=== PATIENT | male | born 1940 | race Caucasian/White ===

== ENCOUNTER → 2018-02-13 12:56 | Outpatient (CLI) | payer OTHER, SELFPAY ==
--- NOTE | 2018-02-13 | DI.CT.S_ITS ---
PROCEDURE: CT CHEST W CON INDICATIONS: 77-year-old male with 1 cm lateral right mid lung nodule on prior chest CT. TECHNIQUE: After the administration of intravenous contrast, 5 mm thick sections acquired from the pulmonary apices to the posterior costophrenic angles. 7 mm thick coronal and sagittal MIP reformats were acquired. For radiation dose reduction, the following was used: automated exposure control, adjustment of mA and/or kV according to patient size. COMPARISON: [facility], CT, PE STUDY (CTA CHEST), 02/28/2017, 17:11. [facility], CT, PE STUDY (CTA CHEST), 05/24/2016, 17:03. [facility], CT, CT CHEST WO CON, 04/18/2017, 11:28. FINDINGS: Image quality: Excellent. Lungs and pleura: No acute air space opacities. There is mild biapical paraseptal emphysema. Previously noted peripheral right midlung subpleural 1 cm opacity is no longer present. No pleural effusions or pneumothorax. Central and peripheral airways are patent and normal in caliber. Mediastinum: Heart size is normal, with widespread coronary artery atherosclerosis. No pericardial effusion. No mediastinal or hilar adenopathy by size criteria. Thoracic aorta and central pulmonary arteries are normal in size. Esophagus is normal in caliber. No hiatal hernia. Bones and chest wall: No suspicious bony lesions. Nonacute right second through sixth rib fractures are again noted. No vertebral body compression fractures. Patient is status post lower cervical spine anterior fixation. No axillary or supraclavicular adenopathy by size criteria. Thyroid gland is normal in size. There is asymmetric right supraspinatus and infraspinatus muscle atrophy. Abdomen: Bilateral renal cortical cysts are incompletely visualized, measuring up to 3.7 cm on the right. IMPRESSION: 1. Previously noted peripheral right midlung subpleural 1 cm nodular opacity is no longer present, consistent with resolved infectious or inflammatory focus. No further followup imaging is needed. 2. Mild biapical paraseptal emphysema. 3. Multiple nonacute right second through sixth rib fractures as before. 4. Right supraspinatus and infraspinatus muscle fatty atrophy, consistent with chronic full-thickness rotator cuff tendon tears. Dictated by: Boris Iqbal M.D. on 02/13/2018 at 14:30 Approved by: Boris Iqbal M.D. on 02/13/2018 at 14:42
[2018-02-13 13:34] LABS: Estimated Glomerular Filt Rate > 60.0 mL/min (>60)
== END ==
PROVIDERS: PCP Internal Medicine; Visit Provider Internal Medicine
DX: R91.1 Solitary pulmonary nodule (principal)
CPT/HCPCS: 36415; 71260; 82565; Q9967

== ENCOUNTER → 2018-02-20 13:51 | Outpatient (CLI) | payer OTHER, SELFPAY ==
--- NOTE | 2018-02-21 18:12 | DI.NM.S_ITS ---
DATE OF SERVICE: 02/20/2018 ORDERING PHYSICIAN: Viral Yanes MD PROCEDURE: Nuclear cardiac stress study. INDICATIONS: Mr. Garcia is a 77-year-old gentleman with a history of known coronary artery disease. Nuclear cardiac stress study is performed to evaluate for recurrent ischemia. STRESS TEST: This patient was given a standard pharmacologic stress study with Lexiscan injection. Patient had no symptoms of angina or diagnostic EKG changes of ischemia following pharmacologic stress. He received 24.8 mCi of technetium- 99 Myoview for the stress portion of the examination, and returned 1 day later for the resting portion of the examination receiving an additional 20.4 mCi. FINDINGS: Raw Data: Raw data images demonstrate overall good image quality. There are no significant sources of artifact or interference noted. Quantitative Gated SPECT Imaging: Gated images show a heart size upper limits of normal at 128 cc. The estimated ejection fraction is 62%, which I think is probably overestimated. There is significant wall motion abnormality involving the basal and midportion of the inferior wall and lateral wall. Quantitative Perfusion SPECT Imaging: Stress myocardial perfusion imaging shows a large area of dense hypoperfusion involving the inferior wall extending out to the apex and involving also the posterior and lateral wall. Resting images show a similar myocardial perfusion deficit that may be slightly improved in the basal and midportion of the lateral wall. No other per convincing perfusion abnormalities are identified. IMPRESSION: Abnormal nuclear cardiac stress study suggesting a fairly large scar involving the territory of the left circumflex coronary artery. No clear- cut ischemia identified in the Left anterior descending (LAD) distribution or the inferior septum. Clinical correlation suggested. Kevin Garcia - CELSA/lashawn/ab doc#: [id number]/job#: [id number] dd: 02/21/2018 16:29:00 dt: 02/21/2018 17:57:00 DICTATING MD/COPIES TO: Regis Queen MD COPIES MNE: RELL
== END ==
PROVIDERS: PCP Internal Medicine; Visit Provider Internal Medicine Interventional Cardiology
DX: I25.10 Atherosclerotic heart disease of native coronary artery without angina pectoris (principal)
CPT/HCPCS: 78452; 93016; 93017; 93018; A9502; J2785

== ENCOUNTER → 2018-02-21 07:40 | Outpatient (CLI) | payer OTHER, SELFPAY ==
--- NOTE | 2018-02-21 | DI.US.S_ITS ---
PROCEDURE: US RETRO PERITONEAL LIMITED INDICATIONS: PERIPHERAL VASCULAR DISEASE TECHNIQUE: Real time scanning was performed of the aorta and iliac arteries, with image documentation. COMPARISON: None. FINDINGS: Aorta: Proximal aortic diameter measures 2.1 cm. Mid-aorta measures 1.7 cm. Distal aortic diameter is 1.4 cm. Iliac arteries: Right common iliac artery measures 0.8 cm. Left common iliac artery measures 0.9 cm. IMPRESSION: There is prominent calcific and soft plaque over the visualized aorta and iliac vessels area no aneurysm found. Dictated by: Jhoan Vee M.D. on 02/21/2018 at 10:24 Approved by: Johan Vee M.D. on 02/21/2018 at 10:25
--- NOTE | 2018-02-21 | DI.US.S_ITS ---
PROCEDURE: US ARTERIAL DUPLEX LE BI INDICATIONS: Peripheral vascular disease TECHNIQUE: Color and pulse Doppler interrogation was performed of both lower extremity arterial systems, with image documentation. COMPARISON: None. FINDINGS: Right lower extremity: Common femoral artery: No flow seen Deep femoral artery: No flow seen Proximal superficial femoral artery: Monophasic flow, 3 51 cm/s Mid superficial femoral artery: Monophasic flow, 26 cm/s Distal superficial femoral artery: Monophasic flow, 44 cm/s Popliteal artery: Monophasic flow, 79 cm/s Posterior tibial artery: Monophasic flow, 22 cm/s Anterior tibial artery/dorsalis pedis: Monophasic flow 14 cm/s Roque-scale imaging description: Prominent calcific and soft plaque Left lower extremity: Common femoral artery: Monophasic flow, 70 cm/s Deep femoral artery: Monophasic flow, 12 cm/s Proximal superficial femoral artery: Monophasic flow, 29 cm/s Mid superficial femoral artery: Monophasic flow, 48 cm/s Distal superficial femoral artery: Monophasic flow, 62 cm/s Popliteal artery: Monophasic flow, 71 cm/s Posterior tibial artery: Monophasic flow, 21 cm/s Anterior tibial artery/dorsalis pedis: Monophasic flow, 11 cm/s Roque-scale imaging description: Prominent calcific and soft plaque. IMPRESSION: 1. Occlusion of the common femoral artery and profunda femoris arteries on the right, with reperfusion of the right lower extremity through collateral flow producing generalized monophasic flow through the right leg, with focal elevated flow velocity at the proximal right superficial femoral artery do to the prominence of calcific and soft plaque in that area. 2. The generalized monophasic flow pattern within the left lower extremity indicates likelihood of a distal aortic or left iliac artery high grade stenosis or occlusion, with reperfusion of the left lower extremity through collateral flow. Followup by MR angiogram and runoff evaluation may be warranted if some form of intervention is anticipated. 3. Prominent atherosclerotic calcific and soft plaque over the lower extremity arterial vasculature bilaterally. Dictated by: Jhoan Vee M.D. on 02/21/2018 at 10:18 Approved by: Jhoan Vee M.D. on 02/21/2018 at 10:24
== END ==
PROVIDERS: PCP Internal Medicine; Visit Provider Internal Medicine Interventional Cardiology
DX: I70.8 Atherosclerosis of other arteries (principal); I73.9 Peripheral vascular disease, unspecified
CPT/HCPCS: 76775; 93925

== ENCOUNTER 2018-06-21 20:35 | Observation (INO) | payer OTHER, SELFPAY ==
--- NOTE | 2018-06-21 20:44 | DI.RAD.S_ITS ---
PROCEDURE: XR RIBS LT MIN 3V W CXR1V INDICATIONS: fall with L sided rib pain TECHNIQUE: 3 views of the left ribs were acquired, along with a single view chest. COMPARISON: [facility], CHEST 2 VIEW, 02/28/2017, 15:37. [facility], CHEST 1 VIEW, 03/04/2017, 6:32. [facility], CHEST 2 VIEW, 03/07/2017, 5:42. FINDINGS: Right basilar linear density is present, which gives the appearance of pneumoperitoneum. Surgical changes and devices: Cervical fusion hardware. Bones and chest wall: No fractures or dislocations. No suspicious bony lesions. Overlying soft tissues appear unremarkable. Lungs and pleura: No pleural effusions or pneumothorax. Lungs appear clear. Mediastinum: Mediastinal contours appear normal. Heart size is normal. IMPRESSION: 1. No rib fracture. 2. Presumed right basilar scarring creating the appearance of pneumoperitoneum. Further assessment with left lateral decubitus examination is recommended for confirmation. 3. Findings discussed with Dr. Quarles on 2016.18 at 2118 hrs. Dictated by: Nic Emery M.D. on 06/21/2018 at 21:16 Approved by: Nic Emery M.D. on 06/21/2018 at 21:19
[2018-06-21 20:46] VITALS: BP 121/73; PULSE 83; RESP 20; TEMP 36.7; O2SAT 94; BMI 28.1
--- NOTE | 2018-06-21 21:21 | DI.RAD.S_ITS ---
PROCEDURE: XR CHEST 1V INDICATIONS: right sided scarring on prior imaging TECHNIQUE: One view of the chest was acquired. COMPARISON: None. FINDINGS: Surgical changes and devices: None. Lungs and pleura: No pleural effusions or pneumothorax. Lungs are clear. Mediastinum: Mediastinal contours appear normal. Heart size is normal. Bones and chest wall: No suspicious bony lesions. Overlying soft tissues appear unremarkable. IMPRESSION: No evidence of pneumoperitoneum. Dictated by: Nic Emery M.D. on 06/21/2018 at 21:44 Approved by: Nic Emery M.D. on 06/21/2018 at 21:44
[2018-06-21 21:29] LABS: Add Manual Diff / Slide Review NO; Basophils Percent Auto 0.2 % (0-2); Eosinophils Percent Auto 0.2 % (2-4); Hemoglobin 13.7 g/dL (13.5-17.5); Mean Corpuscular HGB Conc 33.6 % (30-36); Mean Corpuscular Hemoglobin 30.1 PG (26-34); Mean Corpuscular Volume 89.8 fL (80-100); Monocytes Percent Auto 4.7 % (3-14); Neutrophils Absolute Auto 9200 /uL (3000-5900); Neutrophils Percent Auto 81.9 % (50-75); Platelet Count 234 X10^3/uL (150-400); Red Blood Cell Count 4.56 X10^6/uL (4.5-5.9); Red Cell Distribution Width 14.3 % (11.6-14.8); White Blood Cell Count 11.2 X10^3/uL (4.5-11.0)
--- NOTE | 2018-06-21 21:29 | ED.FALL ---
HPI - Fall General Chief Complaint: Fall Stated Complaint: GLF Time Seen by Provider: 06/21/18 20:39 Source: patient, family and EMS Mode of arrival: EMS Limitations: no limitations History of Present Illness HPI Narrative: 77-year-old male, former smoker with cardiac history presents by EMS with a chief complaint of a ground level fall in which he injured his left lateral ribs. He has full recall of the fall and denies hitting his head, neck or back. He denies any hemoptysis, shortness of breath. He states he was not dizzy nor weak or lightheaded leading to the fall. He denies other injury as a result of the fall. His pain is worse with motion and improves with rest MD complaint: fall Onset (ago): hour(s) Fall from: standing Fall witnessed: no Place fall occurred: home Loss of consciousness: none Prolonged down time: no Symptoms prior to fall: none Context: tripped/slipped Location of injury: chest Severity: moderate Quality: sharp Associated symptoms (after fall): denies Related Data Home Medications Medication Instructions Recorded Confirmed amlodipine [Norvasc] 10 mg PO QDAY #0 05/24/16 atorvastatin [Lipitor] 20 mg PO QDAY #0 05/24/16 benazepril 40 mg PO QDAY #0 05/24/16 carvedilol [Coreg] 25 mg PO BID #0 05/24/16 duloxetine [Cymbalta] 30 mg PO BID #60 cap 05/24/16 eszopiclone [Lunesta] 3 mg PO HS #0 tab 05/24/16 gabapentin [Neurontin] 300 mg PO TID #0 05/24/16 meloxicam [Mobic] 7.5 mg PO BIDCC #60 tab 05/24/16 methocarbamol 500 mg PO QIDP PRN #0 tab 05/24/16 mirtazapine 30 mg PO HS #0 tab 05/24/16 quetiapine 50 mg PO QDAY #0 02/28/17 albuterol sulfate [Ventolin HFA] 0 puff INH Q4HP PRN 06/22/18 06/22/18 amlodipine 10 mg PO DAILY 06/22/18 06/22/18 fluticasone-salmeterol [Advair 1 INHALATION DAILY 06/22/18 Diskus] quetiapine 25 mg PO BIDP PRN 06/22/18 06/22/18 Previous Rx's Medication Instructions Recorded albuterol sulfate 3 ml INH Q4HWA #10 ea 03/09/17 amoxicillin-pot clavulanate 875 mg PO BID #10 tab 03/09/17 [Augmentin] insulin aspart U-100 [Novolog 2 - 8 unit SQ QIDACHS 30 Days #0 d 03/09/17 Flexpen U-100 Insulin] metformin [Glucophage] 500 mg PO BIDCC #60 tab 03/09/17 prednisone 40 mg PO QDAY #14 03/09/17 tiotropium bromide [Spiriva with 18 mcg INH QDAY #1 ea 03/09/17 HandiHaler] Allergies Allergy/AdvReac Type Severity Reaction Status Date / Time No Known Drug Allergies Allergy Verified 06/22/18 03:01 Review of Systems Review of Systems All systems reviewed & are unremarkable except as noted in HPI and below Constitutional Denies chills, Denies fever(s), Denies lethargy and Denies weakness Eyes Denies change in vision, Denies eye discharge, Denies irritation and Denies loss of vision ENT Ears, Nose, Mouth, and Throat: Denies change in voice, Denies neck pain and Denies sore throat Cardiovascular Reports chest pain, Denies irregular heart rhythm, Denies lightheadedness, Denies palpitations, Denies dyspnea, Denies dyspnea on exertion and Denies orthopnea Respiratory Denies cough, Denies dyspnea, Denies dyspnea on exertion and Denies wheezing Gastrointestinal Gastrointestinal: Denies abdominal pain, Denies change in bowel habits, Denies diarrhea, Denies nausea and Denies vomiting Genitourinary Denies hematuria, Denies flank pain, Denies urinary incontinence and Denies urinary urgency Musculoskeletal Denies neck pain Integumentary/Breasts Denies pruritus, Denies erythema, Denies rash and Denies wounds Neurologic Denies confusion, Denies loss of vision and Denies weakness Psychiatric Denies anxiety, Denies confusion, Denies depression, Denies homicidal ideation and Denies suicidal ideation Endocrine Denies palpitations Hematologic/Lymphatic Denies easy bruising Allergic/Immunologic Denies wheezing Exam Narrative Exam Narrative: Pleasant 77-year-old male in mild distress, clutching his left anterior chest Initial Vital Signs Initial Vital Signs: Vital Signs Temperature 98.1 F 06/21/18 20:46 Pulse Rate 83 06/21/18 20:46 Respiratory Rate 20 06/21/18 20:46 Blood Pressure 121/73 06/21/18 20:46 Pulse Oximetry 94 06/21/18 20:46 Const General: cooperative and well developed Nutritional Appearance: well nourished Orientation: alert, awake, oriented x3 and not confused [facility] Head: normocephalic and atraumatic Ears: external ears normal and TM's normal bilaterally Nose: external nose normal and No nasal discharge Face and sinus: sinuses nontender, face symmetric, no sinus tenderness and dry mucous membranes Teeth and gingiva: dentition normal Throat: tonsils normal and uvula midline Eyes General: appearance normal, both eyes and all related structures Eyelids: eyelids normal Conjunctivae: conjunctivae normal Sclera: sclerae normal Pupils: PERRL EOM: EOM intact bilaterally Neck Neck: normal visual inspection, trachea midline, No lymphadenopathy, No midline deformity and No JVD Lymphatic: No lymphedema Chest Chest: localized rib tenderness with anteroposterior compression Resp Effort & Inspection: normal respiratory effort, able to speak in complete sentences, no respiratory distress and no use of accessory muscles Auscultation: clear to auscultation bilaterally, no rales, no rhonchi and no wheezes Cardio Rate: regular rate Rhythm: regular rhythm Heart Sounds: no click, no gallops, no murmurs and no rubs Pulses: normal peripheral pulses GI Inspection: non-distended Palpation: soft, no hepatosplenomegaly, No guarding, No pulsatile mass and No tender Auscultation: normal bowel sounds Back/Spine/Pelvis Back: No CVA tenderness Cervical Spine: cervical ROM normal and No pain with cervical ROM Thoracic/Lumbar Spine: thoracic and lumbar spine normal to inspection Skin Trauma: no lacerations or abrasions Wounds: no wounds Other: dry, tenting, poor turgor Neuro General: alert, oriented x3, gait normal and no focal motor deficits Speech: speech normal Extrem General: full ROM, no clubbing, cyanosis or edema, no pedal edema and no calf tenderness Psych Appearance: well kempt Mental Status: mental status grossly normal Attitude: cooperative Thought Content: normal and suicidality Judgment: judgment good [facility] Medical History Hypertension (Acute) Neuropathy (Acute) On home oxygen therapy (Acute) Type 2 diabetes mellitus (Acute) Social History Smoking Status: Former smoker Course Orders Ordered: ED Orders 06/21/18 20:44 XR ribs LT min 3V w CXR1V Stat 06/21/18 21:21 XR chest 1V Stat 06/21/18 21:22 Basic Metabolic Panel Stat Complete Blood Count AUTO DIFF Stat 06/22/18 00:08 Troponin & CK Cardiac Panel Stat 06/22/18 01:45 Urinalysis and Microscopic Stat 06/22/18 02:59 Complete Blood Count AUTO DIFF Stat 06/22/18 04:15 Consult to Respiratory Therapy Evaluate & Treat 06/22/18 04:16 Education, smoking cessation ONGOING 06/22/18 05:00 Basic Metabolic Panel Stat Creatine Kinase Stat Sodium Chloride (Normal Saline 0.9%) 1,000 mls @ 125 mls/hr IV CONT JENNIFER Last Admin: 06/22/18 03:13 Dose: 125 mls/hr Discontinued Medications Albuterol (Ventolin) 2.5 mg INH NOW ONE Stop: 06/21/18 22:23 Last Admin: 06/21/18 22:29 Dose: 2.5 mg Reevaluation(s) Reevaluation #1: family now at the bedside and they add much to the story that the patient left out. The patient fell many hours ago and made his way to bed, there was a trail of urine and feces en route to his bed. Though he has full recall of the fall he doesn't know how he got to bed, how long he was there and is fairly certain he passed out for awhile. Also, family states he has fallen a few times this week and it's likely due to his bum knee. He lives at home alone with very little support and is very unsafe for discharge Consultations Consultation #1: Dr. Pritchard is happy to accept this patient as OBS Vital Signs - 8 hr 06/21/18 20:46 06/22/18 01:26 06/22/18 02:17 Temperature 98.1 F Pulse Rate 83 81 84 Respiratory Rate 20 21 20 Blood Pressure 121/73 Blood Pressure [Right Arm] 125/75 127/77 Pulse Oximetry 94 94 93 06/22/18 02:50 Temperature 98.1 F Pulse Rate 88 Respiratory Rate 22 Blood Pressure 142/74 H Blood Pressure [Right Arm] Pulse Oximetry 96 MDM - Fall Lab Data Result diagrams: 06/21/18 21:22 06/21/18 21:22 Lab Results 06/21/18 06/21/18 06/21/18 Range/Units 21:22 21:22 21:22 WBC 11.2 H (4.5-11.0) X10^3/uL RBC 4.56 (4.5-5.9) X10^6/uL Hgb 13.7 (13.5-17.5) g/dL Hct 41.0 (41-53) % MCV 89.8 (80-100) fL MCH 30.1 (26-34) PG MCHC 33.6 (30-36) % RDW 14.3 (11.6-14.8) % Plt Count 234 (150-400) X10^3/uL Neut % (Auto) 81.9 H (50-75) % Lymph % (Auto) 13.0 L (25-40) % [place] % (Auto) 4.7 (3-14) % Eos % (Auto) 0.2 L (2-4) % Baso % (Auto) 0.2 (0-2) % Neut # (Auto) 9200 H (3101-2974) /uL Sodium 139 (137-145) mmol/L Potassium 4.8 (3.4-5.1) mmol/L Chloride 101 (98-107) mmol/L Carbon Dioxide 23 (22-32) mmol/L BUN 16 (9-20) mg/dL Creatinine 0.60 L (0.66-1.25) mg/dL Estimated GFR > 60.0 (>60) mL/min BUN/Creatinine Ratio 26.7 H (6-22) Glucose 133 H (80-110) mg/dL Calcium 9.7 (8.4-10.2) mg/dL Total Creatine Kinase 135 (55-170) U/L CK-MB (CK-2) 2.23 (<2.37) ng/mL CK-MB (CK-2) Rel Index 1.7 (1.5-5.0) % Troponin I < 0.012 (0.01-0.034) ng/mL Urine Color Urine Appearance Urine pH (4.5-8.0) Ur Specific Icard (1.000-1.035) Urine Protein (Negative) Urine Glucose (UA) (Normal) g/dL Urine Ketones (NEGATIVE) Urine Occult Blood (Negative) Urine Nitrate (Negative) Urine Bilirubin (NEGATIVE) Urine Urobilinogen (0.2) E.U./dL Ur Leukocyte Esterase (NEGATIVE) Urine RBC (0-5/HPF) Urine WBC (0-5/HPF) Ur Squamous Epith Cells Urine Bacteria (None) Ur Culture Indicated? Micro UA Comment 06/22/18 Range/Units 01:45 WBC (4.5-11.0) X10^3/uL RBC (4.5-5.9) X10^6/uL Hgb (13.5-17.5) g/dL Hct (41-53) % MCV (80-100) fL MCH (26-34) PG MCHC (30-36) % RDW (11.6-14.8) % Plt Count (150-400) X10^3/uL Neut % (Auto) (50-75) % Lymph % (Auto) (25-40) % [place] % (Auto) (3-14) % Eos % (Auto) (2-4) % Baso % (Auto) (0-2) % Neut # (Auto) (2546-3458) /uL Sodium (137-145) mmol/L Potassium (3.4-5.1) mmol/L Chloride (98-107) mmol/L Carbon Dioxide (22-32) mmol/L BUN (9-20) mg/dL Creatinine (0.66-1.25) mg/dL Estimated GFR (>60) mL/min BUN/Creatinine Ratio (6-22) Glucose (80-110) mg/dL Calcium (8.4-10.2) mg/dL Total Creatine Kinase (55-170) U/L CK-MB (CK-2) (<2.37) ng/mL CK-MB (CK-2) Rel Index (1.5-5.0) % Troponin I (0.01-0.034) ng/mL Urine Color Yellow Urine Appearance Clear Urine pH 5.5 (4.5-8.0) Ur Specific Icard 1.015 (1.000-1.035) Urine Protein Negative (Negative) Urine Glucose (UA) Negative (Normal) g/dL Urine Ketones Trace H (NEGATIVE) Urine Occult Blood Negative (Negative) Urine Nitrate Negative (Negative) Urine Bilirubin Negative (NEGATIVE) Urine Urobilinogen 0.2 (0.2) E.U./dL Ur Leukocyte Esterase Negative (NEGATIVE) Urine RBC None seen (0-5/HPF) Urine WBC None seen (0-5/HPF) Ur Squamous Epith Cells 1-5 /hpf Urine Bacteria None seen (None) Ur Culture Indicated? Cult not indicated Micro UA Comment Not Reportable Point of Care Testing Glucose POC 96 Discharge Plan Departure Patient Disposition: Admitted as Observation Clinical Impression: Syncope Discharge Date/Time: 06/22/18 02:53 Interventions: ED Discharge Assessment Last Done: 06/22/18 02:25 Admit Date/Time: 06/22/18 02:07 Admit Provider: Leena Pritchard
[2018-06-21 21:39] LABS: BUN Creatinine Ratio 26.7 (6-22); Blood Urea Nitrogen 16 mg/dL (9-20); Calcium 9.7 mg/dL (8.4-10.2); Carbon Dioxide 23 mmol/L (22-32); Chloride 101 mmol/L (98-107); Estimated Glomerular Filt Rate > 60.0 mL/min (>60); Glucose 133 mg/dL (80-110); HEMOLYSIS < 15 (0-50); Potassium 4.8 mmol/L (3.4-5.1); Sodium 139 mmol/L (137-145)
[2018-06-21] MEDS: ALBUTEROL 2.5 MG/3 ML NEB (ADULT) INH (22:29)
[2018-06-22] VITALS (14 sets, daily range): BP systolic 123–161; BP diastolic 55–83; PULSE 70–92; RESP 16–22; TEMP 36.6–36.8; O2SAT 93–98; BMI 28.1
[2018-06-22 00:28] LABS: Creatine Kinase 135 U/L (55-170)
[2018-06-22 00:41] LABS: Troponin I < 0.012 ng/mL (0.01-0.034)
[2018-06-22 00:43] LABS: CKMB % Relative Index 1.7 % (1.5-5.0); Creatine Kinase MB 2.23 ng/mL (<2.37)
[2018-06-22 01:51] LABS: Appearance Urine UA CLEAR; Bacteria Urine None Seen; Bilirubin Urine UA NEGATIVE (NEGATIVE); Color Urine UA YELLOW; Glucose Urine UA NEGATIVE (Normal); Ketones Urine UA TRACE (NEGATIVE); Leukocyte Esterase Urine UA NEGATIVE (NEGATIVE); Nitrite Urine UA NEGATIVE (Negative); Occult Blood Urine UA NEGATIVE (Negative); Protein Urine UA NEGATIVE (Negative); RBC Urine None Seen (0-5/HPF); Specific Gravity Urine UA 1.015 (1.000-1.035); Urobilinogen Urine UA 0.2 E.U./dL (0.2); WBC Urine None Seen (0-5/HPF); pH Urine UA 5.5 (4.5-8.0)
[2018-06-22 02:05] LABS: Squamous Epithelial Cell Urine 1-5 /HPF
[2018-06-22 02:06] LABS: Culture Indicated Urine Cult Not Indicated
[2018-06-22] MEDS: SODIUM CHLORIDE 0.9% 1,000 ML 125 ML IV ×3 (03:13→20:46)
[2018-06-22 05:17] LABS: Add Manual Diff / Slide Review NO; Basophils Percent Auto 0.7 % (0-2); Eosinophils Percent Auto 1.1 % (2-4); Hematocrit 40.5 % (41-53); Hemoglobin 13.8 g/dL (13.5-17.5); Lymphocytes Percent Auto 18.9 % (25-40); Mean Corpuscular HGB Conc 34.1 % (30-36); Mean Corpuscular Hemoglobin 30.3 PG (26-34); Neutrophils Absolute Auto 6400 /uL (3000-5900); Neutrophils Percent Auto 73.3 % (50-75); Platelet Count 222 X10^3/uL (150-400); Red Blood Cell Count 4.55 X10^6/uL (4.5-5.9); Red Cell Distribution Width 14.3 % (11.6-14.8); White Blood Cell Count 8.7 X10^3/uL (4.5-11.0)
[2018-06-22 05:27] LABS: Creatine Kinase 151 U/L (55-170)
[2018-06-22 05:40] LABS: BUN Creatinine Ratio 21.4 (6-22); Blood Urea Nitrogen 15 mg/dL (9-20); Calcium 9.5 mg/dL (8.4-10.2); Carbon Dioxide 25 mmol/L (22-32); Chloride 100 mmol/L (98-107); Estimated Glomerular Filt Rate > 60.0 mL/min (>60); Glucose 176 mg/dL (80-110); HEMOLYSIS 23 (0-50); Potassium 4.1 mmol/L (3.4-5.1); Sodium 138 mmol/L (137-145)
[2018-06-22] MEDS: ACETAMINOPHEN 325 MG TABLET 650 MG PO ×2 (06:59→23:31)
--- NOTE | 2018-06-22 07:49 | P.HP_ITS ---
History of Present Illness Date Patient Seen: 06/22/18 Time Patient Seen: 07:42 Chief complaint: GLF Narrative: 77-year-old male with past medical history of hypertension, diabetes , diabetic neuropathy, COPD, CAD presented to emergency department status post fall. It is very questionable whether not patient had loss of consciousness, because patient himself is denying it. Nevertheless there is a lapse of memory in between the fall and come into emergency department. As per patient he was walking earlier in the afternoon yesterday when he tripped over the humidifier machine and fell down. He does not remember which side he fell on, however denies any head injury. Patient does state that he was too weak to get up, so after some time (he does not remember how long), the patient dragged himself to his bed. He then called his daughter, who urged patient to come to emergency department. Currently patient is only complaining of left-sided rib cage pain. He states pain is sharp, shooting, relieved by putting pressure on it, nonradiating, palpable. He denies any blurry vision or dizziness, denies any headache. Denies any cough or sore throat. He is on home oxygen I believe for COPD, however currently denies any shortness of breath while in bed. Denies any palpitations. No cardiac chest pain. The patient denies any nausea or vomiting, denies diarrhea or constipation. Patient states he does have prostate enlargement so initiating urine is tough for him. No leg swelling, but he states he has some sensation diminished to both legs from neuropathy. On arrival to the ED patient's vital signs were stable. Lab work was benign with the exception of WBC that was 11.9. CK levels were 135. X-ray of the ribs and chest x-ray revealed no rib fracture, but right basilar scarring creating the appearance of pneumo peritoneum. Patient was given IV fluids and admitted under observation for further assessment of the living situation. Patient History Medical History Hypertension (Acute) Neuropathy (Acute) On home oxygen therapy (Acute) Type 2 diabetes mellitus (Acute) Family & Social History Family History: Reviewed 06/22/18 by Delbert Quarles DO Social History: household members none Prior Living Arrangements House Safety & Behavioral: Feels Safe in Current Yes Environment Been Physically Hurt or No Threatened By a Person Suicidal Ideation Description None Suicide Plan Description No Plan Tobacco & Substance use: Smoking Status Former smoker alcohol intake frequency holiday/special occasion Substance Use Type does not use Meds Home Medications Medication Instructions Recorded Confirmed Type atorvastatin [Lipitor] 20 mg PO QDAY #0 05/24/16 History benazepril 40 mg PO QDAY #0 05/24/16 History carvedilol [Coreg] 25 mg PO BID #0 05/24/16 06/22/18 History duloxetine [Cymbalta] 30 mg PO BID #60 cap 05/24/16 History eszopiclone [Lunesta] 3 mg PO HS #0 tab 05/24/16 06/22/18 History gabapentin [Neurontin] 300 mg PO TID #0 05/24/16 History meloxicam [Mobic] 7.5 mg PO BIDCC #60 tab 05/24/16 History methocarbamol 500 mg PO QIDP PRN #0 tab 05/24/16 History mirtazapine 30 mg PO HS #0 tab 05/24/16 History albuterol sulfate 3 ml INH Q4HWA #10 ea 03/09/17 Rx insulin aspart U-100 [Novolog 2 - 8 unit SQ QIDACHS 30 Days #0 d 03/09/17 Rx Flexpen U-100 Insulin] metformin [Glucophage] 500 mg PO BIDCC #60 tab 03/09/17 Rx tiotropium bromide [Spiriva with 18 mcg INH QDAY #1 ea 03/09/17 Rx HandiHaler] albuterol sulfate [Ventolin HFA] 0 puff INH Q4HP PRN 06/22/18 06/22/18 History amlodipine 10 mg PO DAILY 06/22/18 06/22/18 History fluticasone-salmeterol [Advair 1 INHALATION DAILY 06/22/18 History Diskus] quetiapine 25 mg PO BIDP PRN 06/22/18 06/22/18 History Allergies Allergy/AdvReac Type Severity Reaction Status Date / Time No Known Drug Allergies Allergy Verified 06/22/18 03:01 Exam Vital Signs (past 8 hours): - 06/22/18 01:26 06/22/18 02:17 06/22/18 02:50 Temperature 98.1 F Pulse Rate 81 84 88 Respiratory Rate 21 20 22 Blood Pressure 142/74 H Blood Pressure [Right Arm] 125/75 127/77 Pulse Oximetry 94 93 96 Oxygen Delivery Method Room Air Narrative Exam Narrative: General: No acute distress, AAO x3 HEENT: Glaucoma bilaterally, O2 nasal cannula in place Neck: Supple, no LAD, no JVD CV: Regular rate and rhythm, no murmurs or gallops Chest: Tenderness to palpation in the left 5th rib region, that is alleviated by the pressure. No bruising or lesions noted around the area Respiratory: Clear to auscultation bilaterally, no wheezes or crackles GI: Positive bowel sounds in all 4 quadrants, no organomegaly, nontender Musculoskeletal: Moves all extremities bilaterally Skin: No bruising or open lesions noted. No edema Neuro: No focal deficits Psych: Mood is appropriate, however patient is forgetful Objective Labs Result Diagrams: 06/22/18 05:00 06/22/18 05:00 Labs: Laboratory Results - last 24 hr 06/21/18 06/21/18 06/21/18 21:22 21:22 21:22 WBC 11.2 H RBC 4.56 Hgb 13.7 Hct 41.0 MCV 89.8 MCH 30.1 MCHC 33.6 RDW 14.3 Plt Count 234 Neut % (Auto) 81.9 H Lymph % (Auto) 13.0 L Hawkins % (Auto) 4.7 Eos % (Auto) 0.2 L Baso % (Auto) 0.2 Neut # (Auto) 9200 H Sodium 139 Potassium 4.8 Chloride 101 Carbon Dioxide 23 BUN 16 Creatinine 0.60 L Estimated GFR > 60.0 BUN/Creatinine Ratio 26.7 H Glucose 133 H Calcium 9.7 Total Creatine Kinase 135 CK-MB (CK-2) 2.23 CK-MB (CK-2) Rel Index 1.7 Troponin I < 0.012 Urine Color Urine Appearance Urine pH Ur Specific [place] Urine Protein Urine Glucose (UA) Urine Ketones Urine Occult Blood Urine Nitrate Urine Bilirubin Urine Urobilinogen Ur Leukocyte Esterase Urine RBC Urine WBC Ur Squamous Epith Cells Urine Bacteria Ur Culture Indicated? Micro UA Comment 06/22/18 06/22/18 06/22/18 01:45 05:00 05:00 WBC 8.7 RBC 4.55 Hgb 13.8 Hct 40.5 L MCV 89.0 MCH 30.3 MCHC 34.1 RDW 14.3 Plt Count 222 Neut % (Auto) 73.3 Lymph % (Auto) 18.9 L Hawkins % (Auto) 6.0 Eos % (Auto) 1.1 L Baso % (Auto) 0.7 Neut # (Auto) 6400 H Sodium Potassium Chloride Carbon Dioxide BUN Creatinine Estimated GFR BUN/Creatinine Ratio Glucose Calcium Total Creatine Kinase 151 CK-MB (CK-2) CK-MB (CK-2) Rel Index Troponin I Urine Color Yellow Urine Appearance Clear Urine pH 5.5 Ur Specific [place] 1.015 Urine Protein Negative Urine Glucose (UA) Negative Urine Ketones Trace H Urine Occult Blood Negative Urine Nitrate Negative Urine Bilirubin Negative Urine Urobilinogen 0.2 Ur Leukocyte Esterase Negative Urine RBC None seen Urine WBC None seen Ur Squamous Epith Cells 1-5 /hpf Urine Bacteria None seen Ur Culture Indicated? Cult not indicated Micro UA Comment Not Reportable 06/22/18 05:00 WBC RBC Hgb Hct MCV MCH MCHC RDW Plt Count Neut % (Auto) Lymph % (Auto) Hawkins % (Auto) Eos % (Auto) Baso % (Auto) Neut # (Auto) Sodium 138 Potassium 4.1 Chloride 100 Carbon Dioxide 25 BUN 15 Creatinine 0.70 Estimated GFR > 60.0 BUN/Creatinine Ratio 21.4 Glucose 176 H Calcium 9.5 Total Creatine Kinase CK-MB (CK-2) CK-MB (CK-2) Rel Index Troponin I Urine Color Urine Appearance Urine pH Ur Specific [place] Urine Protein Urine Glucose (UA) Urine Ketones Urine Occult Blood Urine Nitrate Urine Bilirubin Urine Urobilinogen Ur Leukocyte Esterase Urine RBC Urine WBC Ur Squamous Epith Cells Urine Bacteria Ur Culture Indicated? Micro UA Comment Assessment & Plan Plan: Assessment/Plan Narrative: 77-year-old male with past medical history of hypertension, diabetes, diabetic neuropathy, COPD, CAD presented to emergency department status post fall. He was found to be slightly dehydrated. All the workup was negative. He is admitted for observation for more hydration and social work assessment. 1. Fall -with bruising of left ribcage -chest x-ray did not reveal any rib fractures or pneumothorax -continue Tylenol for pain control -PT/OT consult to assess strength and mobility 2. Cardiac History -unsure of the diagnosis, however patient denies any stenting in the past and states he had stress test done few weeks back which was normal -will continue benazepril, carvedilol, and atorvastatin at this time 3. Hypertension -blood pressure is stable -will resume amlodipine, carvedilol, and benazepril 4. Diabetes type 2 -chronic, with diabetic polyneuropathy -Patient is currently on metformin and insulin at home, will resume -resume gabapentin -monitor blood glucose, hypoglycemia protocol 5. Home oxygen dependence -likely due to COPD, as patient is on many medications however he cannot tell me whether not he has been diagnosed formally -will resume albuterol sulfate, Spiriva, and Advair 6. Psychiatric history -unsure if depression or anxiety -will resume home medications quetiapine, mirtazapine, duloxetine, and Lunesta Patient wishes to be full code 60 min spent evaluating and provided care for this patient Quality VTE Deep Vein Thrombosis/Pulmonary Embolism Present on Admission: No
--- NOTE | 2018-06-22 08:41 | CM.DANOTE ---
DCP: Case received, EMR reviewed and met with patient. Introduced self and role. DCP template completed with information currently available. Patient is a 77 year old male who admitted early this morning to the care of the hospitalist team. PCP: Dr. Rendon. Payer: confirmed: [employer]. Patient came to hospital due to ground level fall. Was complaining of soreness to his ribs. Met with patient, has had history of falls. Lives alone, does have a lifeline, confirmed this with patient. Also has history of hygiene issues. Does have daughter and family that live in [place]. Did have brief discussion with patient regarding home caregivers. Patient is more interested in having someone do houskeeping in his home. P: DCP to continue to follow closely. Will offer support and resources necessary before discharge. Danielle Blanc RN/Mixing Machine Attendant
[2018-06-22] MEDS: HYDROCODONE/ACET 5/325 TABLET 1 TAB PO ×2 (09:20→21:43)
[2018-06-22] MEDS: BENAZEPRIL 20 MG TABLET 40 MG PO (09:20)
[2018-06-22] MEDS: AMLODIPINE 5 MG TABLET 10 MG PO (09:20)
[2018-06-22] MEDS: CARVEDILOL 25 MG TABLET PO ×2 (09:20→20:49)
[2018-06-22] MEDS: GABAPENTIN 300 MG CAPSULE PO ×3 (09:21→20:48)
[2018-06-22] MEDS: ENOXAPARIN 40 MG/0.4 ML SYRINGE SUBCUT (09:21)
--- NOTE | 2018-06-22 13:58 | PC.NURSE ---
Maynor has been alert, oriented, and cooperative today. Disheveled appearance. With staff help, he was able to shampoo and shower. (He had urinated all over the floor and the bed with attempts to use urinal.) VSS. He admits to L rib pain. [place] given with good relief. Mild dyspnea on exertion. O2 sat 94% on RA. Blood sugars running low 100's; no insulin coverage needed. Maynor has a good appetite and is eating well.
[2018-06-22] MEDS: ALBUTEROL 2.5 MG/3 ML NEB (ADULT) INH ×2 (15:30→20:08)
--- NOTE | 2018-06-22 16:08 | PT.IIE ---
Medical History (Last Updated 06/22/18 @ 03:16 by Delphine Hutchinson RN) Hypertension (Acute) Neuropathy (Acute) On home oxygen therapy (Acute) Type 2 diabetes mellitus (Acute) Physical Therapy Inpatient Evaluation/Re-Eval M1 PT/OT-IP Prior Functional Status Start: 06/22/18 17:04 Freq: NEEDED Status: Active Protocol: Document 06/22/18 16:08 AB (Rec: 06/22/18 17:18 AB [id number]) Medical Review Prior Functional Status Medical History Reviewed Yes Communication able to make needs known Mobility and Gait pt stated that he is independent with all mobilities and ambulation using SPC indoors/outdoors but also uses 4WW whe he has to get his mail ~100 ft from his house. Prior Functional Level (Other details) stated that his daughter/ family (lives a couple of blocks away) checks on him. Social History Household Members none Living Arrangements House Number of Floors (Floors) One Floor Number of Stairs To Enter/Railing? no steps to enter from the front but has 2 steps with bilateral rails in from the garage Home Environment High Toilet Tub/Shower Home Equipment Front Wheel Walker Four Wheel Walker Straight Cane Hand Held Shower Grab Bars In Shower Employment Status Retired Additional Social History Comment using sink to assist him to get up from the toilet M2 PT-IP Current Condition Start: 06/22/18 17:04 Freq: NEEDED Status: Active Protocol: Document 06/22/18 16:08 AB (Rec: 06/22/18 17:18 AB [id number]) Physical Therapy Current Condition Current Condition Evaluation Date 06/22/18 Treatment Diagnosis s/p GLF Onset Date 06/22/18 Precautions Other Precautions falls; O2 sat M3 PT-IP Subjective Start: 06/22/18 17:04 Freq: NEEDED Status: Active Protocol: Document 06/22/18 16:08 AB (Rec: 06/22/18 17:18 AB [id number]) Subjective Physical Therapy Visit Type Type Initial Evaluation Visit Start Time 16:08 Visit Stop Time 16:38 Total Visit Minutes 30 Number of STUDIO TECHNICIAN Visits 0 Physical Therapy Visit Comments Patient Comments pt agreeable to do PT Therapy Pain Assessment Pain When Pain Assessed During Mobility Pain Present Pain Present Pain Reported Location Left Ribs Scale Used pain scale not stated Pain Behaviors Holding Area Wincing M4 PT-IP Mobility and Gait Start: 06/22/18 17:04 Freq: NEEDED Status: Active Protocol: Document 06/22/18 16:08 AB (Rec: 06/22/18 17:18 AB [id number]) PT-Bed Mobility Assessment Supine to Sit Supine to Sit Standby Assistance Sit to Supine Sit to Supine Standby Assistance Scooting Scooting to Edge of Bed Standby Assistance PT-Transfer Assessment Sit to and From Stand Sit to and from Stand Moderate Assistance 1 Person Assistance Use of Upper Extremities Equipment Transfer Assistive Device Gait Belt Front Wheeled Walker Orthotic/Prosthetic Devices or Brace: No Transfers Transfer Destination Bed Chair Transfer Technique pt ambulated bed <>chair using FWW Comments Mobility Comments found pt sitting on chair. BP checked 129/75 O2 sat 88-90%, informed nurse regarding O2 sat and agreed to provide pt with O2. O2 sat prior to ambulation at 2L/min O2: 92-94 %. Pt with c/o L rib pain with initial standing requiring mod A to steady self . Gait Assessment Gait Gait Assistance Required: Minimum Assistance Distance (Feet) 20 Able to Maintain Weight Bearing Status Yes During Gait Assistive Devices Assistive Device Gait Belt Front Wheeled Walker Orthotic/Prosthetic Devices or Brace: No Gait Deviations General Gait Pattern Antalgic Decreased Stride Length Decreased Feet Clearance Lateral Trunk Lean Factors Limiting Gait Function Factors Limiting Gait Function Decreased Activity Tolerance Decreased Strength Limited Range of Motion Pain Poor Balance Poor Safety Awareness PT-Balance Assessment Sitting Balance and Reactions Static Sitting Balance Ability Good Dynamic Sitting Balance Ability Good Standing Balance and Reactions Static Standing Balance Ability Fair Dynamic Standing Balance Ability Fair Device Used FWW M5 PT-IP Objective Assessments Start: 06/22/18 17:04 Freq: NEEDED Status: Active Protocol: Document 06/22/18 16:08 AB (Rec: 06/22/18 17:18 AB [id number]) Orientation Orientation/Cognition Level of Alertness Alert Orientation Name Place Situation Comments pt can be impulsive Strength Lower Extremity Strength Assessment Within Functional Limits M6 PT-IP Treatment Start: 06/22/18 17:04 Freq: NEEDED Status: Active Protocol: Document 06/22/18 16:08 AB (Rec: 06/22/18 17:18 AB [id number]) Physical Therapy Treatment Education Education Provided Safety M7 PT-IP Assessment and Plan Start: 06/22/18 17:04 Freq: NEEDED Status: Active Protocol: Document 06/22/18 16:08 AB (Rec: 06/22/18 17:18 AB [id number]) PT Summary Assessment and Plan Potential Rehabilitation Potential Fair Status of Condition at Evaluation Evolving Summary Impairments Pain ROM Strength Balance Cognition Bed Mobility Transfers Gait Activity Tolerance Assessment Summary pt requiring mod A with sit to stand with pain on L ribs affecting mobility. d/c plan depending on progress but at this time requires assistance and may need SNF rehab. pt also has limited/no support at home. will continue to assess. Goals Bed Mobility Goal Independent Transfer Goal Independent Gait Goal Independent Gait Distance 100 Days to Meet Goals 3 Frequency of Treatment Frequency Of Treatment Once a Day Treatment Plan Physical Therapy Treatment Plan Bed Mobility Training Transfer Training Gait Training Therapeutic Exercise Balance Retraining Discharge Planning Hot or Cold Pack Neuromuscular Re-ed Recommendations To Nursing Amount of Assist Needed 1 Person Assist Discharge Recommendations PT Discharge Recommendations Home with Assistance Home Health SNF Rehab Other Discharge Recommendations SNF vs home with assistance and homehealth
[2018-06-22] MEDS: INSULIN ASPART 100 UNIT/ML INSULN PEN SUBCUT (17:22)
[2018-06-22] MEDS: METFORMIN HCL 500 MG TABLET PO (17:49)
--- NOTE | 2018-06-22 18:45 | DI.CT.S_ITS ---
PROCEDURE: CT HEAD/BRAIN WO CON INDICATIONS: Ground level fall at home, states that he passed out TECHNIQUE: Noncontrast 4.5 mm thick angled axial sections acquired from the foramen magnum to the vertex, with coronal and sagittal reformats. For radiation dose reduction, the following was used: automated exposure control, adjustment of mA and/or kV according to patient size. COMPARISON: None. FINDINGS: Image quality: Excellent. CSF spaces: Basal cisterns are patent. No extra-axial fluid collections. The ventricles are symmetric in size and shape. Brain: No intracranial bleeds or masses. There is cerebral volume loss for age, with resultant ventricular and sulcal prominence. There are periventricular and deep white matter chronic small vessel ischemic changes. There is intracranial internal carotid artery atherosclerosis. Skull and face: Calvarium and visualized facial bones appear intact, without suspicious lesions. Sinuses: There is severe left maxillary sinus disease. IMPRESSION: No acute intracranial process. Left maxillary sinus disease Dictated by: Sean Gutierrez M.D. on 06/22/2018 at 19:36 Approved by: Sean Gutierrez M.D. on 06/22/2018 at 19:39
[2018-06-22] MEDS: ATORVASTATIN 20 MG TABLET PO (20:48)
[2018-06-23] VITALS (10 sets, daily range): BP systolic 123–137; BP diastolic 63–75; PULSE 81–108; RESP 19–24; TEMP 36.8–36.9; O2SAT 88–95
--- NOTE | 2018-06-23 02:03 | PC.NURSE ---
Shift Note Met with pt at start of shift. AOx3. Shows some mild confusion but otherwise pleasant. RA 93%. Placed on 1.5L when Pt transferred to bed. Normally uses 1.5L at home at night. Complained of rib pain 5/10. Provided PRN tylenol. Call light in reach.
[2018-06-23] MEDS: HYDROCODONE/ACET 5/325 TABLET 1 TAB PO (02:13)
[2018-06-23] MEDS: SODIUM CHLORIDE 0.9% 1,000 ML 125 ML IV (04:02)
[2018-06-23 06:54] LABS: Add Manual Diff / Slide Review NO; Basophils Percent Auto 0.7 % (0-2); Eosinophils Percent Auto 1.7 % (2-4); Hematocrit 39.5 % (41-53); Hemoglobin 13.5 g/dL (13.5-17.5); Lymphocytes Percent Auto 23.4 % (25-40); Mean Corpuscular HGB Conc 34.3 % (30-36); Mean Corpuscular Hemoglobin 30.6 PG (26-34); Mean Corpuscular Volume 89.2 fL (80-100); Monocytes Percent Auto 7.9 % (3-14); Neutrophils Absolute Auto 5500 /uL (3000-5900); Neutrophils Percent Auto 66.3 % (50-75); Platelet Count 220 X10^3/uL (150-400); Red Blood Cell Count 4.43 X10^6/uL (4.5-5.9); Red Cell Distribution Width 14.8 % (11.6-14.8); White Blood Cell Count 8.2 X10^3/uL (4.5-11.0)
[2018-06-23 07:02] LABS: BUN Creatinine Ratio 16.7 (6-22); Blood Urea Nitrogen 10 mg/dL (9-20); Calcium 9.3 mg/dL (8.4-10.2); Carbon Dioxide 26 mmol/L (22-32); Chloride 107 mmol/L (98-107); Estimated Glomerular Filt Rate > 60.0 mL/min (>60); Glucose 116 mg/dL (80-110); HEMOLYSIS < 15 (0-50); Potassium 3.6 mmol/L (3.4-5.1); Sodium 144 mmol/L (137-145)
[2018-06-23] MEDS: CARVEDILOL 25 MG TABLET PO (07:45)
[2018-06-23] MEDS: METFORMIN HCL 500 MG TABLET PO ×2 (07:45→16:53)
[2018-06-23] MEDS: GABAPENTIN 300 MG CAPSULE PO ×2 (07:45→15:41)
[2018-06-23] MEDS: AMLODIPINE 5 MG TABLET 10 MG PO (07:46)
[2018-06-23] MEDS: ALBUTEROL 2.5 MG/3 ML NEB (ADULT) INH ×2 (07:46→11:01)
[2018-06-23] MEDS: BENAZEPRIL 20 MG TABLET 40 MG PO (07:47)
[2018-06-23] MEDS: INSULIN ASPART 100 UNIT/ML INSULN PEN SUBCUT (07:54)
[2018-06-23] MEDS: ENOXAPARIN 40 MG/0.4 ML SYRINGE SUBCUT (07:55)
--- NOTE | 2018-06-23 11:53 | PT.IPTN ---
Physical Therapy Treatment Note M2 PT-IP Current Condition Start: 06/22/18 17:04 Freq: NEEDED Status: Active Protocol: Document 06/23/18 11:41 AMB (Rec: 06/23/18 11:53 AMB [email or web address]) Physical Therapy Current Condition Current Condition Evaluation Date 06/22/18 Treatment Diagnosis s/p GLF Onset Date 06/22/18 Precautions Other Precautions falls; O2 sat M3 PT-IP Subjective Start: 06/22/18 17:04 Freq: NEEDED Status: Active Protocol: Document 06/23/18 11:41 AMB (Rec: 06/23/18 11:53 AMB [email or web address]) Subjective Physical Therapy Visit Type Type Treatment Note Visit Start Time 11:10 Visit Stop Time 11:30 Total Visit Minutes 20 Number of CLARIFICATION OPERATOR Visits 0 Physical Therapy Visit Comments Patient Comments Pt just finishing breathing treatment. Sitting in chair and states rib pain is slightly better. M4 PT-IP Mobility and Gait Start: 06/22/18 17:04 Freq: NEEDED Status: Active Protocol: Document 06/23/18 11:41 AMB (Rec: 06/23/18 11:53 AMB [email or web address]) PT-Transfer Assessment Sit to and From Stand Sit to and from Stand Minimal Assistance Use of Upper Extremities Comments Mobility Comments SpO2 at rest 90%. Pt required cueing for safety with walker and for breathing through his nose for O2. Pt on 2L via nasal cannula during all treatment. O2 dropped to 85% with ambulation despite O2. Gait Assessment Gait Gait Assistance Required: Contact Guard Assist Distance (Feet) 100 Assistive Devices Assistive Device Gait Belt 4 Wheeled Walker Gait Deviations General Gait Pattern Antalgic M5 PT-IP Objective Assessments Start: 06/22/18 17:04 Freq: NEEDED Status: Active Protocol: Document 06/22/18 16:08 AB (Rec: 06/22/18 17:18 AB [id number]) Orientation Orientation/Cognition Level of Alertness Alert Orientation Name Place Situation Comments pt can be impulsive Strength Lower Extremity Strength Assessment Within Functional Limits M6 PT-IP Treatment Start: 06/22/18 17:04 Freq: NEEDED Status: Active Protocol: Document 06/22/18 16:08 AB (Rec: 06/22/18 17:18 AB [id number]) Physical Therapy Treatment Education Education Provided Safety M7 PT-IP Assessment and Plan Start: 06/22/18 17:04 Freq: NEEDED Status: Active Protocol: Document 06/23/18 11:41 AMB (Rec: 06/23/18 11:53 AMB [email or web address]) PT Summary Assessment and Plan Summary Assessment Summary Pt required verbal cues for safety with gait and transfers . SpO2 drops quickly with activity, but pt states he has been a mouth breather his entire life and he is unable to breath through his nose. Concerned that if pt requires home O2 during the day, line could be a tripping hazard. Per pt report his SpO2 readings at home have historically been in the mid 90s, and he does not know why his O2 is worse now than it has been. Recommendations To Nursing Amount of Assist Needed 1 Person Assist Discharge Recommendations PT Discharge Recommendations Home with Assistance Home Health SNF Rehab Other Discharge Recommendations SNF vs home with assistance and homehealth.
--- NOTE | 2018-06-23 13:44 | CM.DPC ---
Addendum entered by Maryse Puentes LPN 06/23/18 14:54: Discussed update with GENARO Akers. She reports that pt does have an 02 concentrator at home. uses it occasionally at night. He had described this prior as a humidifier. She notes his thought process today is much clearer than when he first came in. What is new is that he will be on 02 routinely now including in the daytime. Original Note: DCP: continued: Met with pt after speaking with Dr. Pritchard. She reports pt wishes to go home and she will order [facility]. Pt now needs home 02. He confirms that his daughter Manjinder and his 3 yr old granddaughter will be picking him up. He does have a Lifeline but did not use it at time of his fall...he did call his daughter instead. She does all the driving, does the shopping and etc. Pt is very agreeable to . Choice list: discussed: decision: [facility] (he had them last year and said they were very helpful). Pt would very much like a noxious weeds and pest inspector he says/discussed that this is not pd for by his [facility] but that the social work administrator who will go out as part of [facility] will look at what resources he may be entitled to and help him facilitate same. 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 HH/RN/OT/PT/IRVING and SEATING UPHOLSTERER are ordered. Dr. Pritchard has completed Face/Face/ [facility] accepts referral and all is faxed to her now.
--- NOTE | 2018-06-23 13:58 | OT.IP.EVAL ---
Past Medical History (Last Updated 06/22/18 @ 17:44 by Paola Alegre RN) Hypertension (Acute) Neuropathy (Acute) On home oxygen therapy (Acute) PAD (peripheral artery disease) (Acute) Type 2 diabetes mellitus (Acute) Occupational Therapy Inpatient Evaluation/Re-Eval M1 PT/OT-IP Prior Functional Status Start: 06/22/18 17:04 Freq: NEEDED Status: Active Protocol: Document 06/23/18 13:58 PJM (Rec: 06/23/18 15:50 PJM [id number]) Medical Review Prior Functional Status Medical History Reviewed Yes Diet/Fluid Consistency Regular Communication WNL Mobility and Gait pt stated that he is independent with all mobilities and ambulation using SPC indoors/outdoors but also uses 4WW when he has to get his mail ~100 ft from his house. Activities of Daily Living and IADL's pt states he is independent with all self care including seated shower. He states he could use assistance with cardroom supervisor such as vacuuming. He no longer drives , so his daughter assists with grocery shopping and transport to appointments. His granddaughter picks up his meds. Pt manages his own finances with supervision from daughter. Pt states he sets up his meds in a pillbox, Social History Household Members none Living Arrangements House Number of Floors (Floors) One Floor Number of Stairs To Enter/Railing? no steps to enter from the front but has 2 steps with bilateral rails in from the garage Home Environment High Toilet Tub/Shower Home Equipment Front Wheel Walker Four Wheel Walker Straight Cane Shower Seat with Backrest Hand Held Shower Grab Bars In Shower Employment Status Retired Additional Social History Comment using sink to assist him to get up from the toilet M2 OT-IP Current Condition Start: 06/23/18 15:31 Freq: Status: Active Protocol: Document 06/23/18 13:58 PJM (Rec: 06/23/18 15:50 PJM [id number]) Occupational Therapy Current Condition Current Condition Evaluation Date 06/23/18 Treatment Diagnosis assess ability to return home alone after ground level fall Diagnosis Onset Date 06/22/18 Post Operative Precautions Other Precautions falls; O2 1.5L, pt states he has home O2 M3 OT- IP Subjective and Pain Start: 10/19/18 15:31 Freq: Status: Active Protocol: Document 06/23/18 13:58 PJM (Rec: 06/23/18 15:50 PJ [id number]) OT- Subjective Occupational Therapy Visit Type Type Initial Evaluation Visit Start Time 13:21 Visit Stop Time 13:58 Total Visit Minutes 37 Notes No family here to confirm home situation. Occupational Therapy Visit Comments Patient/Caregiver Goals to go home with [facility] health services, which he has used before OT Pain Assessment Pain When Pain Assessed After Treatment Pain Present Pain Present Pain Reported Location Left Chest Intensity 4 Scale Used Numeric (1 - 10) Description Aching Acute Pain Behaviors Facial Grimacing Guarding Management Techniques Distraction Re-positioning Timing of Activity with Medications M4 OT- IP ADL's Start: 06/23/18 15:31 Freq: Status: Active Protocol: Document 06/23/18 13:58 PJM (Rec: 06/23/18 15:50 PJ [id number]) OT [id number] General Evaluation Self-Feeding Ability Independent OT ADL-Grooming General Evaluation Grooming Ability Independent Areas Needing Assistance Combing/Brushing Hair Comments OT Grooming Comments standing at sink with FWW OT ADL-Oral Care General Eval Oral Care Ability Independent Areas of Assistance Managing Dentures Devices Oral Care Devices Toothbrush Comments Oral Care Comments standing at sink with FWW OT ADL-Dressing General Eval Upper Body Dressing Ability Independent Lower Body Dressing Ability Independent Areas Needing Assistance Pull-Over Shirt Pants/Shorts Socks Comments OT Dressing Comments No shoes here at present. OT ADL-Toileting General Evaluation Toileting Ability Independent OT ADL-Bathing Comments OT Bathing Comments did not occur this session; recommend OT to assess showering in home setting M5 OT- IP IADL's Start: 06/23/18 15:31 Freq: Status: Active Protocol: Document 06/23/18 13:58 PJM (Rec: 06/23/18 15:50 PJ [id number]) OT-Instrumental Activities of Daily Living Deficits IADL Deficits Identified Deficits Home Safety Awareness Awareness of Need for Assistance at Home Good Awareness Home Safety Comments Pt has [employer] at home. Medication Management Medication Management Caregiver Provides Supervision Medication Management Comments daughter can check PRN Money Management Money Management Caregiver Provides Supervision Money Management Comments daughter assists PRN per pt Meal Preparation Meal Preparation No Deficits Identified Gold Charmer Gold Charmer Comments Pt states he is having trouble vacuuming and with other heavier cardroom supervisor. Driving Driving Caregiver Provides Assist Driving Comments family assists PRN M6 OT- IP Functional Cognition Start: 06/23/18 15:31 Freq: Status: Active Protocol: Document 06/23/18 13:58 PJM (Rec: 06/23/18 15:50 PJM [id number]) Cognitive Factors Limiting Selfcare Function Cognitive Ability Level of Alertness Alert Patient Orientation Name Month Date Year Place Situation Attention Span Ability Capable of Focused Attention Capable of Sustained Attention Ability to Follow Commands Able to Follow One Step Commands Cognitive Comments Cognitive Assessment Comments pt mildly impulsive at times OT- Vision and Hearing OT- Hearing Assessment OT- Hearing Assessment WFL OT- Vision Assessment Visual Acuity WFL Vision Assessment Comments pt wears glasses for distance and second pair for reading M7 OT- IP Mobility and Balance Start: 06/23/18 15:31 Freq: Status: Active Protocol: Document 06/23/18 13:58 PJM (Rec: 06/23/18 15:50 PJ [id number]) OT-Transfer Assessment Sit to and From Stand Sit to and from Stand Independent Transfers Transfer Ability Independent Technique Transfer Destination Chair Toilet Transfer Technique Stand Step Pivot Devices Transfer Assistive Devices Front Wheeled Walker OT- Gait Assessment Gait Gait Assistance Required: Standby Assistance Distance (Feet) 20 Assistive Devices Assistive Device Front Wheeled Walker Comments Gait Ability Comments No LOB noted OT- Balance Assessment Sitting Balance and Reactions Static Sitting Balance Ability Good Dynamic Sitting Balance Ability Good Standing Balance and Reactions Static Standing Balance Ability Good Comments Other Balance Tests/Deviations/Treatment No loss of balance standing 4 : min at sink for grooming tasks M8 OT- IP Objective Assessments Start: 06/23/18 15:31 Freq: Status: Active Protocol: Document 06/23/18 13:58 PJM (Rec: 06/23/18 15:50 PJM [id number]) OT Gross Range of Motion Upper Extremity Range of Motion Assessment Within Functional Limits ROM Impairments Rumney neck deformity of B thumbs noted OT Strength Upper Extremity Strength Assessment Within Functional Limits Hand Herbarium Worker Strength Hand Dominance Right OT- Coordination Assessment Comments Coordination Comments BUE WFL, compensates well for B thumb swan neck deformities OT-Muscle Tone Assessment Muscle Tone WNL Yes OT Sensation Assessment Comments Summary Comments Pt denies sensory deficits in BUE's Edema Edema Absent M9 OT- IP Assessment and Plan Start: 06/23/18 15:31 Freq: Status: Active Protocol: Document 06/23/18 13:58 PJM (Rec: 06/23/18 15:50 PJM [id number]) OT Summary Assessment and Plan Potential Analytic Complexity at Evaluation Low Summary Progress Towards Goals Safe For Discharge Assessment Summary Low complexity OT assessment completed. Pt appears to be at baseline level of self care function after ground level fall at home with soft tissue injury to L ribs. Pt ambulating in room with FWW with SBA and no loss of balance noted. Provided education re: home safety and energy conservation/pacing. No further acute care OT goals identified for this admission. Recommend HH OT assess IADLS and showering safety in home setting. Frequency of Treatment Frequency Of Treatment Discharge Discharge Recommendations OT Discharge Recommendations Home with Assistance Home Health Other Discharge Recommendations Family assists with shopping, transport. Recommend HH OT assess IADLS and showering in home setting.
--- NOTE | 2018-06-23 14:10 | PM.DS.1 ---
History of Present Illness Chief complaint: GLF Narrative: 77-year-old male with past medical history of hypertension, diabetes, diabetic neuropathy, COPD, CAD presented to emergency department status post fall. It is very questionable whether not patient had loss of consciousness, because patient himself is denying it. Nevertheless there is a lapse of memory in between the fall and come into emergency department. As per patient he was walking earlier in the afternoon yesterday when he tripped over the humidifier machine and fell down. He does not remember which side he fell on, however denies any head injury. Patient does state that he was too weak to get up, so after some time (he does not remember how long), the patient dragged himself to his bed. He then called his daughter, who urged patient to come to emergency department. Currently patient is only complaining of left-sided rib cage pain. He states pain is sharp, shooting, relieved by putting pressure on it, nonradiating, palpable. He denies any blurry vision or dizziness, denies any headache. Denies any cough or sore throat. He is on home oxygen I believe for COPD, however currently denies any shortness of breath while in bed. Denies any palpitations. No cardiac chest pain. The patient denies any nausea or vomiting, denies diarrhea or constipation. Patient states he does have prostate enlargement so initiating urine is tough for him. No leg swelling, but he states he has some sensation diminished to both legs from neuropathy. Discharge Providers Date of admission: 06/22/18 02:07 Primary care physician: Linda Rendon MD Consults: 06/22/18 04:15 Consult to Respiratory Therapy Evaluate & Treat Comment: Home O2 use, COPD Hx Physician Instructions: Evaluate and treat 06/22/18 10:21 Consult to Occupational Therapy Evaluate & Treat Comment: Physician Instructions: Evaluate and treat Consult to Physical Therapy Evaluate & Treat Comment: Physician Instructions: Evaluate and Treat Discharge provider: Leena Pritchard MD Discharge Date: 06/23/18 Summary Hospital Course: On arrival to the ED patient's vital signs were stable. Lab work was benign with the exception of WBC that was 11.9. CK levels were 135. X-ray of the ribs and chest x-ray revealed no rib fracture, but right basilar scarring. No acute cardiopulmonary disease was noted. Patient was given IV fluids and admitted under observation for further assessment of the living situation. In the general medical unit, patient was continued on fluids, sodium chloride at 125 cc/hour. His subsequent lab work showed resolution of WBCs. As per family's concern regarding patient's mentation changes, CT scan of the head was performed which showed no acute processes. Patient was working with Physical therapy, who recommended patient to go to subacute rehab for strengthening. However patient refused transfer to assisted facility. Patient is of sound mind, capable of making his own decisions, therefore he will be sent home as per his request. Patient required increasing amount of oxygen use while ambulating, from 2 L sitting or lying down to 3-4 L while ambulating. I have discussed with patient that he likely has advanced COPD disease, and now requires increasing amount of oxygenation 24/7. Patient understood my concern, and was willing to use oxygen 24/7. He also required the use of walker while inpatient, which is new as compared to baseline. Patient will be discharged home with home oxygen, and home health for PT/OT services. He was advised to follow up with his primary care doctor within 7 days of discharge. Status at Discharge Functional status at discharge: uses cane/walker Overall status at discharge: patient is progressing back to baseline Time Spent with Patient Less than 30 minutes Exam Vital Signs (past 8 hours): - 06/23/18 07:00 06/23/18 07:40 06/23/18 07:45 Temperature 98.3 F Pulse Rate 108 H Respiratory Rate 20 Blood Pressure 128/75 128/75 Pulse Oximetry 92 92 06/23/18 07:47 06/23/18 07:51 06/23/18 09:03 Temperature Pulse Rate 103 H Respiratory Rate 20 Blood Pressure Pulse Oximetry 88 L 94 94 06/23/18 11:36 06/23/18 11:50 Temperature 98.5 F Pulse Rate 101 H 81 Respiratory Rate 19 24 Blood Pressure 123/63 Pulse Oximetry 95 91 Oxygen Delivery Method Nasal Cannula Oxygen Flow Rate 1.5 Narrative Exam Narrative: General: No acute distress, AAO x3 HEENT: Glaucoma bilaterally, O2 nasal cannula in place Neck: Supple, no LAD, no JVD CV: Regular rate and rhythm, no murmurs or gallops Chest: Tenderness to palpation in the left 5th rib region, that is alleviated by the pressure. No bruising or lesions noted around the area Respiratory: Clear to auscultation bilaterally, no wheezes or crackles GI: Positive bowel sounds in all 4 quadrants, no organomegaly, nontender Musculoskeletal: Moves all extremities bilaterally Skin: No bruising or open lesions noted. No edema Neuro: No focal deficits Psych: Mood is appropriate, however patient is forgetful Objective Labs Result Diagrams: 06/23/18 06:30 06/23/18 06:30 Labs: Laboratory Results - last 24 hr 06/23/18 06/23/18 06:30 06:30 WBC 8.2 RBC 4.43 L Hgb 13.5 Hct 39.5 L MCV 89.2 MCH 30.6 MCHC 34.3 RDW 14.8 Plt Count 220 Neut % (Auto) 66.3 Lymph % (Auto) 23.4 L [place] % (Auto) 7.9 Eos % (Auto) 1.7 L Baso % (Auto) 0.7 Neut # (Auto) 5500 Sodium 144 Potassium 3.6 Chloride 107 Carbon Dioxide 26 BUN 10 Creatinine 0.60 L Estimated GFR > 60.0 BUN/Creatinine Ratio 16.7 Glucose 116 H Calcium 9.3 Discharge Plan Discharge Plan Patient Disposition: Home Discharge Med Rec/Prescriptions Prescriptions: Continue carvedilol [Coreg] 25 MG tablet 25 mg PO BID Qty: 0 RF: 0 gabapentin [Neurontin] 300 MG capsule 300 mg PO TID Qty: 0 RF: 0 duloxetine [Cymbalta] 30 MG capsule,delayed release(DR/EC) 30 mg PO BID Qty: 60 RF: 0 meloxicam [Mobic] 7.5 MG tablet 7.5 mg PO BIDCC Qty: 60 RF: 0 eszopiclone [Lunesta] 3 MG tablet 3 mg PO HS Qty: 0 RF: 0 atorvastatin [Lipitor] 20 MG tablet 20 mg PO BEDTIME Qty: 0 RF: 0 tiotropium bromide [Spiriva with HandiHaler] 18 MCG capsule, w/inhalation device 18 mcg INH QDAY Qty: 1 RF: 0 insulin aspart U-100 [Novolog Flexpen U-100 Insulin] 100 UNIT/1 ML insulin pen 2 - 8 unit SQ QIDACHS 30 Days Qty: 0 RF: 0 fluticasone-salmeterol [Advair Diskus] 250-50 mcg/dose blister with device 1 puff Inhalation DAILY RF: 0 albuterol sulfate [Ventolin HFA] 90 MCG/PUFF HFA aerosol inhaler INH Q4HP PRN (Reason: Shortness Of Breath Or Wheezing) RF: 0 amlodipine 10 mg tablet 10 mg PO DAILY RF: 0 albuterol sulfate 0.63 mg/3 mL solution for nebulization 1 vial Inhalation QID RF: 0 metformin 1,000 mg tablet 1 tab PO BID RF: 0 benazepril 40 mg tablet 1 tab PO DAILY RF: 0 Follow up/Referrals: Linda Rendon MD [Primary Care Provider] - 1 Week Provider Discharge Instructions Diet: Regular Activity: with a walker and assistance Oxygen: 2-4 L as needed Other treatments: home health Visit Report/Discharge Packet Visit Report Forms: Stroke Signs & Symptoms Discharge Data Primary Care Provider: Linda Rendon Attending Provider: Leena Pritchard Admit Date/Time: 06/22/18 02:07 Quality VTE Deep Vein Thrombosis/Pulmonary Embolism Present on Admission: No
--- NOTE | 2018-06-23 15:26 | PC.NURSE ---
Am shift Pt continues to improve with strength, Using o2 most of shift, spot checks on RA show 88-90% + cough + sputum. Using light for needs, BA/CA active. IV SL, Dr Pritchard into see Pt who refuses d/c to SNF and will have HH set up at D/c later today. Per [facility] for d/c. Updated KARY Dunbar by phone x2 this afternoon, and she will transport pt home. All questions addressed. Pt updated., and eager to d/c home.
[2018-06-23] MEDS: ACETAMINOPHEN 325 MG TABLET 650 MG PO (15:40)
== END 2018-06-23 18:02 | disposition home or self-care (01) ==
LOC: ED 21:45 → AC 06-22 02:07
PROVIDERS: Admitting Provider Internal Medicine; Emergency Provider Emergency Medicine; Family Provider Internal Medicine; PCP Internal Medicine; Visit Provider Internal Medicine
DX: S20.212A Contusion of left front wall of thorax, initial encounter (principal); W01.198A Fall on same level from slipping, tripping and stumbling with subsequent striking against other object, initial encounter; I10 Essential (primary) hypertension; E11.42 Type 2 diabetes mellitus with diabetic polyneuropathy; J44.9 Chronic obstructive pulmonary disease, unspecified; I25.10 Atherosclerotic heart disease of native coronary artery without angina pectoris; Z99.81 Dependence on supplemental oxygen; Z79.4 Long term (current) use of insulin; E86.0 Dehydration
CPT/HCPCS: 36415; 36591; 70450; 71045; 71101; 80048; 81001; 82550; 82553; 82962; 84484; 85025; 94640; 94760; 97116; 97162; 97165; 97535; 99283; 99285; G0378; J1650; J7613

== ENCOUNTER 2018-12-22 13:32 | Outpatient (RCR) | payer OTHER, SELFPAY ==
[2018-06-22 02:39] VITALS: BMI 28.1
--- NOTE | 2018-12-22 14:22 | PT.OPPN ---
Current Diagnoses Difficulty in walking, not elsewhere classified (12/22/18) Pt arrived for his scheduled evaluation, however upon discussing with him his goals for physical therapy, he was very clear that he just wanted a strict exercise routine, however he reported very high fear of a second cardiac event, as well as fear that his recent Iliac Artery stents would fail during therapy, and he would either or lose my legs. After an extended discussion with the patient and his daughter, it was determined that he would likely be much more comfortable with cardiac rehab at this time. No skilled intervention was performed at this time, nor was any chargeable evaluation performed. Pt will likely benefit from skilled PT focusing on his balance and mobility at a later time, especially if cardiac rehab is able to decrease most of his fear. Koby Bridges, PT, DPT
== END 2019-01-17 14:48 ==
LOC: PHYS 13:32
PROVIDERS: Family Provider Physician Assistant; PCP Physician Assistant; Visit Provider Physician Assistant
DX: R26.2 Difficulty in walking, not elsewhere classified (principal)

== ENCOUNTER → 2019-02-05 15:20 | Outpatient (CLI) | payer OTHER, SELFPAY ==
[2018-06-22 02:39] VITALS: BMI 28.1
--- NOTE | 2019-02-05 | DI.RAD.S_ITS ---
PROCEDURE: XR CHEST 2V INDICATIONS: COUGH TECHNIQUE: 2 views of the chest were acquired. COMPARISON: [facility], CT, CT CHEST W CON, 02/13/2018, 13:42. [facility], CR, XR RIBS LT MIN 3V W CXR1V, 06/21/2018, 20:20. [facility], CR, XR CHEST 1V, 06/21/2018, 21:12. FINDINGS: Surgical changes and devices: Cervical spine multilevel ACDF. Electronic device projected over the left upper quadrant. Lungs and pleura: Lungs are clear, aside from mild bibasilar airspace opacities. No pleural effusions or pneumothorax. Mediastinum: Mediastinal contours are normal. Heart size is normal. Bones and chest wall: Multiple right healed anterior rib fractures redemonstrated. No suspicious bony abnormalities. Soft tissues appear unremarkable. IMPRESSION: 1. Bibasilar atelectasis versus aspiration or pneumonia. Correlate clinically. Dictated by: Scott BURTON Interpreted: Jhoan Vee MD on 02/05/2019 at 16:48 Approved by: Jhoan Vee M.D. on 02/06/2019 at 9:41
== END ==
PROVIDERS: PCP Physician Assistant; Visit Provider Internal Medicine
DX: R05 Cough (principal); R19.7 Diarrhea, unspecified
CPT/HCPCS: 71046; 87493

== ENCOUNTER → 2019-05-11 12:58 | Outpatient (CLI) | payer OTHER, SELFPAY ==
[2018-06-22 02:39] VITALS: BMI 28.1
--- NOTE | 2019-05-11 13:01 | DI.CT.S_ITS ---
PROCEDURE: CT HEAD/BRAIN WO CON INDICATIONS: Other amnesia TECHNIQUE: Noncontrast 4.5 mm thick angled axial sections acquired from the foramen magnum to the vertex, with coronal and sagittal reformats. For radiation dose reduction, the following was used: automated exposure control, adjustment of mA and/or kV according to patient size. COMPARISON: [facility], CT, CT HEAD/BRAIN WO CON, 06/22/2018, 19:11. FINDINGS: Image quality: Excellent. CSF spaces: Basal cisterns are patent. No extra-axial fluid collections. The ventricles are symmetric in size and shape. Brain: No intracranial bleeds or masses. There is moderate cerebral volume loss for age, with resultant ventricular and sulcal prominence. There are moderate periventricular and deep white matter chronic small vessel ischemic changes with mild interval progression involving the right upper lobe. Roque-white matter differentiation is maintained at the site. No evidence for sulcal effacement or secondary symptoms of edema. There is intracranial internal carotid artery atherosclerosis. Skull and face: Calvarium and visualized facial bones appear intact, without suspicious lesions. Sinuses: Moderate bilateral maxillary sinus disease. Remainder the visualized paranasal sinuses and mastoids appear clear. IMPRESSION: 1. CT head without acute intracranial abnormalities, mass, or mass effect. 2. Moderate age-related senescent changes with slight interval progression of chronic small vessel ischemic disease most notable in the right frontal lobe. 3. Moderate bilateral maxillary sinus disease. Dictated by: Gabriel Rubio M.D. on 05/11/2019 at 13:25 Approved by: Gabriel Rubio M.D. on 05/11/2019 at 13:29
== END ==
PROVIDERS: PCP Physician Assistant; Visit Provider Physician Assistant
DX: R41.3 Other amnesia (principal); J32.0 Chronic maxillary sinusitis
CPT/HCPCS: 70450